=== PATIENT | male | born 1970 | race Hispanic/Latino ===

== ENCOUNTER 2021-08-26 22:59 | Emergency (ER) | payer MEDICAID ==
[2021-08-26] MEDS ORDERED: Lidocaine 1% (PF) 30 ML VIAL ONE (23:28)
[2021-08-26] MEDS ORDERED: Clindamycin 150 MG CAP ONE (23:32)
[2021-08-27] MEDS ORDERED: Bacitracin 1 PK ONE (00:02)
== END 2021-08-27 00:10 | disposition home or self-care (01) ==
LOC: MADERS 22:59
DX: S01.511A Laceration without foreign body of lip, initial encounter (principal); W22.8XXA Striking against or struck by other objects, initial encounter
CPT/HCPCS: 12015; J2001